=== PATIENT | male | born 1985 | race Caucasian/White ===

== ENCOUNTER 2019-05-29 09:03 | Emergency (ER) | payer OTHER, SELFPAY ==
[2019-05-29 09:03] VITALS: BP 132/76; PULSE 79; RESP 16; TEMP 36.7; O2SAT 98; BMI 22.0
--- NOTE | 2019-05-29 09:25 | CT_ITS ---
STUDY: CT BRAIN WITHOUT CONTRAST REASON FOR EXAM: Male, 33 years old. 20 foot fall. Prior right craniotomy RADIATION DOSAGE (If Supplied By Facility): CTDIvol = ( 44.99 ) mGy, DLP = ( 897.35 ) mGycm TECHNIQUE: Transaxial CT imaging of the brain was performed without administration of intravenous contrast material. Individualized dose optimization techniques were used for this CT. COMPARISON: No relevant priors. FINDINGS: Normal soft tissue structures. Prior right parietal craniotomy. Normal size ventricles and extra-axial spaces for the patient's age. Focal rounded area of the increased attenuation in the posterior aspect of the right temporal lobe. This most likely represents a focal area of hemorrhagic contusion. Focal encephalomalacia in the right temporal parietal lobe from prior surgery. Normal basal ganglia and thalami. Normal brainstem. Normal cerebellum. There is no intracranial hemorrhage. There are no findings of an acute ischemic infarction. Normal visualized paranasal sinuses. CT/Brain/Head without Contrast IMPRESSION: Findings suggestive of a focal hemorrhagic contusion in the posterior right temporal lobe. Prior right temporoparietal craniotomy with postoperative changes. Electronically Signed: Richi Maya, at 10:28 EDT , Service support ,
--- NOTE | 2019-05-29 09:25 | CT_ITS ---
STUDY: CT CERVICAL SPINE WITHOUT CONTRAST REASON FOR EXAM: Male, 33 years old. History of a 20 feet fall. RADIATION DOSAGE (If Supplied By Facility): CTDIvol = ( 23.37 ) mGy, DLP = ( 468.29 ) mGycm TECHNIQUE: High resolution transaxial imaging was performed without contrast material. Sagittal and coronal images were reconstructed. Individualized dose optimization techniques were used for this CT. COMPARISON: None FINDINGS: Normal craniovertebral junction. Normal anterior atlantoaxial articulation. Normal odontoid process. Normal cervical lordosis. Normal vertebral bodies and posterior osseous elements. C2-3: Normal endplates. Normal disc height and morphology. Normal central canal and intervertebral neuroforamina. C3-4: Normal endplates. Normal disc height and morphology. Normal central canal and intervertebral neuroforamina. C4-5: Normal endplates. Normal disc height and morphology. Normal central canal and intervertebral neuroforamina. C5-6: Normal endplates. Normal disc height and morphology. Normal central canal and intervertebral neuroforamina. C6-7: Normal endplates. Normal disc height and morphology. Normal central canal and intervertebral neuroforamina. C7-T1: Normal endplates. Normal disc height and morphology. Normal central canal and intervertebral neuroforamina. Mild scarring at the right lung apex. CT/Spine Cervical without Contras IMPRESSION: Normal unenhanced CT examination of the cervical spine. Electronically Signed: Richi Maya, at 10:31 EDT , Service support ,
--- NOTE | 2019-05-29 09:26 | CT_ITS ---
STUDY: CT LUMBAR SPINE WITHOUT CONTRAST REASON FOR EXAM: Male, 33 years old. Low back pain following a 20 feet fall. RADIATION DOSAGE (If Supplied By Facility): CTDIvol = ( 32.71 ) mGy, DLP = ( 966.75 ) mGycm TECHNIQUE: The patient was scanned in a multi detector CT scanner. High resolution transaxial imaging was performed. Images were obtained from T12 to S1 vertebral level. Sagittal and coronal images were reconstructed. Individualized dose optimization techniques were used for this CT. COMPARISON: None FINDINGS: Normal lumbar lordosis. There is no substantial scoliosis. There is approximate 50% compression fracture of the L2 vertebrae. This is located anteriorly. No retropulsion of the fracture fragments. 30% loss of height of the L3 vertebrae secondary to an anterior compression fracture. This is worse on the left side. There is no evidence of retropulsion of fracture fragments. L1-2: Normal endplates. Normal disc height and morphology. Normal bilateral facet joints. Normal central canal and bilateral lateral recesses. Normal bilateral intervertebral neural foramina. L2-3: Normal endplates. Normal disc height and morphology. Normal bilateral facet joints. Normal central canal and bilateral lateral recesses. Normal bilateral intervertebral neural foramina. L3-4: Central disc bulge at the L3-L4 level causing deformity of thecal sac. L4-5: Diffuse posterior disc bulge at the L4-L5 level causing minimal deformity of the thecal sac worse on the right side. L5-S1: Normal endplates. Normal disc height and morphology. Normal bilateral facet joints. Normal central canal and bilateral lateral recesses. Normal bilateral intervertebral neural foramina. Soft tissue swelling at the L2-L3 and L1 levels due to the compression fractures. CT/Spine Lumbar without Contrast IMPRESSION: Compression fractures of the L2 and L3 vertebrae anteriorly. There is no evidence of a retropulsion. Disc protrusion at the L3-L4 and L4-L5 levels. Electronically Signed: Richi Maya, at 10:34 EDT , Service support ,
--- NOTE | 2019-05-29 09:26 | CT_ITS ---
STUDY: CT ABDOMEN AND PELVIS WITH CONTRAST REASON FOR EXAM: Male, 33 years old. Low back pain following a fall 2020 feet. RADIATION DOSAGE (If Supplied By Facility): CTDIvol = ( 30.97 ) mGy, DLP = ( 1478.55 ) mGycm TECHNIQUE: Transaxial images were obtained from the dome of the diaphragm to the symphysis pubis without oral contrast. IV Isovue 300 100mL was administered. Sagittal and coronal images were reconstructed. Individualized dose optimization techniques were used for this CT. COMPARISON: None. FINDINGS: Mild degree of dependent bibasilar atelectasis. The visualized portions of the heart are within normal limits. Normal liver. Normal gallbladder and extrahepatic biliary system. Normal spleen. Normal pancreas. Normal bilateral adrenal glands. Normal right kidney. Normal left kidney. Normal visualized stomach. Normal small intestine. Normal colon. There are surgical clips in the region of the appendix consistent with a prior appendectomy. Normal abdominal aorta. Normal inferior vena cava. Normal retroperitoneum. Distended urinary bladder. Normal abdominal wall. Compression fracture of the L2 and L3 vertebrae anteriorly. No retropulsion of fracture fragments. CT/Abdomen/Pelvis WITH Contrast IMPRESSION: Compression fractures of the L2 and L3 vertebrae as described. Distended urinary bladder. Electronically Signed: Richi Maya, at 10:45 EDT , Service support ,
--- NOTE | 2019-05-29 09:27 | ED.DCSUM_ITS ---
History of Present Illness Chief Complaint: Fall Narrative: 33-year-old male was working on scaffolding approximately 20 feet in the air when it broke and he fell 20 feet onto his back. He is not certain if he had his head or not. He mostly has lower back pain at this time. Denies thoracic back pain or neck pain. No lower extremity or upper extremity pain. He did not sustain any lacerations. He recalls all details of the event and is certain that he did not lose consciousness. Onset of his pain was sudden. It is fairly severe. He denies lower extreme any weakness or numbness. Past Medical History - Allergies and Home Meds Allergies/Adverse Reactions: Allergies No Known Allergies Allergy (Verified 05/29/19 09:07) Prior records reviewed: Yes Smoking Status: Never smoker Review of Systems General: Denies: Chills, Fever, Sweats Eyes: Denies: Visual changes - bilaterally, Diplopia ENT: Denies: Rhinorrhea, Sore throat Cardiovascular: Denies: Chest pain, Palpitations Respiratory: Denies: Dyspnea, Cough, Dyspnea on exertion Gastrointestinal: Denies: Abdominal pain, Nausea, Vomiting, Diarrhea, Melena, Hematochezia Genitourinary: Denies: Dysuria, Hematuria, Frequency Musculoskeletal: Reports: Back pain. Denies: Extremity Pain Skin: Denies: Rash, Wounds Neurological: Denies: Headache, Weakness, Numbness Physical Exam Vital Signs/Narrative: Vital Signs Temp Pulse Resp BP Pulse Ox 05/29/19 09:03 98.0 F 79 16 132/76 H 98 General: Acute Distress Head: Normocephalic, Atraumatic Eyes: Perrl, EOMI ENT: Moist mucous membranes, No rhinorrhea Neck: Supple, Nontender Cardiovascular: Regular rate, Regular rhythm, No murmurs Respiratory: No distress, CTA bilaterally, Chest nontender Abdomen: Soft, Nontender, Nondistended, Normal bowel sounds Back: Spinal tenderness - lumbar Extremities: Nontender, No edema Skin: Normal color, No rash Neurological: Alert, Oriented x3 Psychological: Normal affect, Normal Mood Diagnostic/Tx/Re-eval - Medical Decision Making CT brain revealed a focal hemorrhagic contusion. C-spine negative. Lumbar spine dedicated CT reveals several compression fractures. He has no numbness in his groin or evidence of weakness in his lower extremities at time of reevaluation. I feel that he meets criteria for transfer to a trauma center for neurosurgery consultation. He requested [facility]. He will be transferred by private ambulance. - Critical Care Time Critical care time (excluding procedures): 30-74 minutes, Discussing w/Patient &/or Family/Adult Manager, Discussing w/Consultants, Arranging Admission or Transfer, Performing Direct Patient Care at Bedside ED Disposition - Plan for ED Patient: Disposition: [facility] Diagnosis: Focal hemorrhagic contusion of cerebrum, Lumbar compression fracture Instructions: FALL, Mechanical
[2019-05-29] MEDS: 0.9% Normal Saline 1,000 ML 999 ML IV (09:42)
[2019-05-29] MEDS: Morphine 4 MG/ML Syringe IV (09:43)
[2019-05-29] MEDS: Ondansetron 4 MG/2 ML Vial IV (09:43)
--- NOTE | 2019-05-29 10:10 | RAD_ITS ---
STUDY: X-RAY CHEST REASON FOR EXAM: Male, 33 years old. History of fall. TECHNIQUE: Single AP portable view of the chest. COMPARISON: None. FINDINGS: Scattered calcified granulomas. There is no demonstrated pleural abnormality. Normal size heart. Normal mediastinum and sudhir. Normal visualized pulmonary arteries. Normal visualized aortic arch and descending thoracic aorta. Normal visualized thoracic spine. Normal visualized ribs, clavicles, and shoulders. There is no demonstrated abnormality of the visualized soft tissue structures of the upper abdomen. RAD/Chest 1 View (Portable) IMPRESSION: Multiple scattered bilateral calcified granulomas worse in the left hemithorax. Electronically Signed: Richi Maya, at 10:46 EDT , Service support ,
[2019-05-29 10:12] VITALS: BP 115/63; PULSE 75; RESP 16; O2SAT 97
[2019-05-29] MEDS: HYDROmorphone 1 MG/ML Syringe IV ×2 (10:14→11:32)
[2019-05-29 10:21] LABS: Absolute Lymphocyte Count 2.36 X10^3/uL (0.83-4.51); Absolute Neutrophil Count 8.7 X10^3/uL (2.0-7.7); Basophil# 0.04 X10^3/uL; Basophil% 0.3 % (0-1); Eosinophil# 0.13 X10^3/uL; Eosinophils% 1.1 % (0-5); Hematocrit 45.6 % (40-54); Hemoglobin 15.8 g/dL (13.0-16.5); Lymphocyte # 2.36 X10^3/ul (4.0); Lymphocyte % 19.3 % (19-41); Mean Corp Hgb Conc 34.6 g/dL (32-36); Mean Corpuscular Hgb 30.2 pg (27.0-32.0); Mean Platelet Vol. 10.2 fl (6.2-12.0); Monocyte# 0.65 X10^3/uL; Monocyte% 5.3 % (0-10); NRBC Flagged by Analyzer 0 % (0-5); Neutrophil # 8.72 X10^3/uL (2.7-7.7); Neutrophil % 71.4 % (47-70); Platelet Count 222 K/mm3 (150-450); RBC Distribution Width SD 38.5 fl (35.1-43.9); Red Blood Count 5.24 M/mm3 (4.6-6.2); White Blood Count 12.2 K/mm3 (4.4-11.0)
[2019-05-29 10:35] LABS: Anion Gap 4 (5-15); BUN 21 mg/dL (7-18); BUN/Creat Ratio 26.2 RATIO (10-20); Calcium,Total 8.5 mg/dL (8.5-10.1); Chloride 109 mmol/L (98-107); EST Glomerular Filtration Rate 119 mL/min (>60); Est Glom Filt Rate - Afr Amer 144 mL/min (>60); Estimated Creatinine Clearance 124.46 ml/min; Glucose 110 mg/dL (74-106); Potassium 3.8 mmol/L (3.5-5.1); Sodium Level 140 mmol/L (136-145)
[2019-05-29 10:52] VITALS: BP 118/71; PULSE 88; RESP 18; O2SAT 96
[2019-05-29 11:32] VITALS: BP 111/64; PULSE 81; RESP 18; O2SAT 100
== END 2019-05-29 12:11 | disposition short-term general hospital (02) ==
PROVIDERS: Emergency Provider Emergency Medicine
DX: S06.330A Contusion and laceration of cerebrum, unspecified, without loss of consciousness, initial encounter (principal); S32.009A Unspecified fracture of unspecified lumbar vertebra, initial encounter for closed fracture; W12.XXXA Fall on and from scaffolding, initial encounter; Y93.9 Activity, unspecified; Y92.9 Unspecified place or not applicable; Y99.9 Unspecified external cause status
CPT/HCPCS: 36415; 70450; 71045; 72125; 72131; 74177; 80048; 85025; 96361; 96374; 96375; 96376; 99285; J7030; Q9967; J2405